=== PATIENT | male | born 1990 | race Two or more races ===

== ENCOUNTER → 2024-06-20 | Outpatient (CLI) | payer MEDICAID, SELFPAY ==
--- NOTE | 2024-06-20 16:25 | XR_ITS ---
Examination: Foot bilateral, 6 views Technique: AP, oblique, lateral views each foot total 6 views Date and time of exam: June 20, 2024 at 1646 hours INDICATIONS: Bilateral foot pain beginning 5 months ago FINDINGS: No fracture or dislocation involving either foot Mild narrowing first metatarsophalangeal joints bilaterally Mild osteoarthritis tibiotalar joints bilaterally No plantar posterior bony calcaneal spurs IMPRESSION: Mild osteoarthritis No erosive arthritis
== END | disposition home or self-care (01) ==
LOC: CDIM 16:21
PROVIDERS: Referring Provider Nurse Practitioner Family; Visit Provider Nurse Practitioner Family
DX: M19.072 Primary osteoarthritis, left ankle and foot (principal); M19.071 Primary osteoarthritis, right ankle and foot
CPT/HCPCS: 73630